=== PATIENT | female | born 1995 | race Caucasian/White ===

== ENCOUNTER 2020-04-04 17:35 | Emergency (ER) | payer OTHER, SELFPAY ==
--- NOTE | ~2020-04-04 | US_ITS ---
EXAMINATION: US OB <=14 wk fetus w TV DATE: 04/04/2020 19:12 INDICATION: Vaginal bleeding. History of miscarriage. TECHNIQUE: Real-time transabdominal and transvaginal obstetric ultrasound. FINDINGS: No prior studies for comparison. The uterus measures 11 x 7.9 x 5.9 cm. There is an intrauterine gestational sac, with pole iden tified. The crown rump length measures 0.97 cm, which correlates with a estimated gestational age of 7 weeks 0 days. No heart motions are detected. Gestational sac measurements corresponding to 8 week 5 day gestation. Right ovary is unremarkable. Left ovary is not visualized. IMPRESSION: 1. Intrauterine gestational sac containing a pole without heart motions. [place] lateral le ngth measurements correspond to 7 week 0 day gestation. Findings compatible with demise. Recomm end follow-up with serial quantitative beta-hCG levels and ultrasound as clinically indicated. Reviewed, dictated and finalized at location A. IMPRESSION: 1. Intrauterine gestational sac containing a pole without heart mot ions. [place] lateral length measurements correspond to 7 week 0 day gestation. F indings compatible with demise. Recommend follow-up with serial quantitat rich beta-hCG levels and ultrasound as clinically indicated.
[2020-04-04 17:43] VITALS: BP 146/80; PULSE 104; RESP 18; TEMP 36.9; O2SAT 99
[2020-04-04 18:02] LABS: Basophils Percent Auto 0.2 % (0.2-1.2); Eosinophils Absolute Auto 0.1 K/mm3 (0-0.3); Eosinophils Percent Auto 0.5 % (0-4.4); Hematocrit 38.5 % (37.0-47.0); Hemoglobin 12.9 g/dL (12.0-15.0); Immature Granulocyte Absolute 0.04 K/mm3 (0.00-0.031); Immature Granulocyte Percent A 0.3 % (0-0.5); Lymphocytes Absolute Auto 2.72 K/mm3 (0.9-3.2); Lymphocytes Percent Auto 22.6 % (18.3-44.2); Mean Corpuscular HGB Conc 33.5 g/dl (32-36); Mean Corpuscular Hemoglobin 29.1 pg (26-34); Mean Corpuscular Volume 86.7 fl (80-100); Mean Platelet Volume 10.1 fl (7.4-10.4); Monocytes Absolute Auto 0.8 K/mm3 (0.1-0.6); Monocytes Percent Auto 6.2 % (2.6-8.5); Neutrophils Absolute Auto 8.4 K/mm3 (1.3-6.7); Neutrophils Percent Auto 70.2 % (45.5-73.1); Platelet Count Result 341 k/mm3 (150-375); Red Blood Count 4.44 M/mm3 (4.2-5.4); Red Cell Distribution Width 13.2 % (11.5-14.5)
--- NOTE | 2020-04-04 18:12 | ED.FEMALEGU ---
HPI - Female Genitourinary General Chief complaint: Urogenital-Female Stated complaint: 10 wks preg, bleeding Time Seen by Provider: 04/04/20 18:05 Source: patient Mode of arrival: ambulatory Limitations: no limitations History of Present Illness HPI Narrative: This patient is a 24 year old female approximately 10 weeks GA who presents for evaluation of vaginal bleeding. She reports she has had intermittent vaginal bleeding during her . She reports last had bleeding 4 weeks ago and she had an ultrasound that showed an IUP. Today she saw bright red blood today when she was wiping after urinating. She has mild lower abdominal cramping. She reports she has been told her progesterone is low and she is at risk for a miscarriage. She is unsure of her blood type Related Data Home Medications Medication Instructions Recorded Confirmed multivit no.38-folate 6-dustin tablet PO 04/04/20 [Prenate AM] progesterone micronized mg 04/04/20 Allergies Allergy/AdvReac Type Severity Reaction Status Date / Time Penicillins Allergy Severe Unknown Verified 04/04/20 17:46 Review of Systems Review of Systems: All systems reviewed & are unremarkable except as noted in HPI and below Cardiovascular: Cardiovascular: Denies chest pain Respiratory: Respiratory: Denies dyspnea Gastrointestinal: Gastrointestinal: Reports abdominal pain, Denies nausea and Denies vomiting Genitourinary: Genitourinary: Reports abnormal vaginal bleeding and Denies vaginal discharge PMFSH Past Medical History Medical History (Updated 04/04/20 @ 19:40 by Cecile Norman MD) Asthma Surgical History Surgical History (Updated 04/04/20 @ 18:38 by Cecile Norman MD) No pertinent past surgical history Social History Social History (Updated 04/04/20 @ 18:38 by Cecile Norman MD) Smoking status: Never smoker Exam Narrative: Exam Narrative: GENERAL: Well-appearing, well-nourished, and in no acute distress. HEAD: Normocephalic, atraumatic EYES: PERRLA and EOMI, conjunctiva clear without discharge THROAT:Mucous membranes moist, NECK: Supple, without lymphadenopathy or mass RESPIRATORY: No respiratory distress, Airway patent, Respirations non-labored, ABDOMEN: Soft, nontender, nondistended, normal active bowel sounds. No masses. No rebound or guarding, No organomegaly. EXTREMITIES: No edema, normal strength with full range of motion. SKIN: Warm, dry, normal color without rash NEURO: Alert and oriented x3. CN 2-12 grossly intact. No focal deficits. PSYCH: Normal mood and affect. : Speculum Exam - Vagina: abnormal vaginal discharge (brown) Speculum Exam - Cervix: Cervical os closed Course Vital Signs Vital signs: Vital Signs Temperature 98.4 F 04/04/20 17:43 Pulse Rate 104 H 04/04/20 17:43 Respiratory Rate 18 04/04/20 17:43 Blood Pressure 146/80 H 04/04/20 17:43 Pulse Oximetry 99 04/04/20 17:43 Temperature 98.4 F 04/04/20 17:43 Pulse Rate 104 H 04/04/20 17:43 Respiratory Rate 18 04/04/20 17:43 Blood Pressure 146/80 H 04/04/20 17:43 Pulse Oximetry 99 04/04/20 17:43 MDM - Female Genitourinary Lab Data Attestation: I reviewed the patient's lab results. Result diagrams: 04/04/20 17:55 Labs: Lab Results 04/04/20 04/04/20 04/04/20 Range/Units 17:55 17:55 17:55 WBC 12.0 H (4.5-10.0) K/mm3 RBC 4.44 (4.2-5.4) M/mm3 Hgb 12.9 (12.0-15.0) g/dL Hct 38.5 (37.0-47.0) % MCV 86.7 (80-100) fl MCH 29.1 (26-34) pg MCHC 33.5 (32-36) g/dl RDW 13.2 (11.5-14.5) % Plt Count 341 (150-375) k/mm3 MPV 10.1 (7.4-10.4) fl Immature Gran % (Auto) 0.3 (0-0.5) % Neut % (Auto) 70.2 (45.5-73.1) % Lymph % (Auto) 22.6 (18.3-44.2) % [place] % (Auto) 6.2 (2.6-8.5) % Eos % (Auto) 0.5 (0-4.4) % Baso % (Auto) 0.2 (0.2-1.2) % Lymph # (Auto) 2.72 (0.9-3.2) K/mm3 [place] # (Auto) 0.8 H (0.1-0.6) K/m
--- NOTE | 2020-04-04 18:16 | PC.NURSE ---
Dr Norman at bedside doing ultrasound
[2020-04-04 19:51] VITALS: BP 138/90; PULSE 99; RESP 16; O2SAT 100
== END 2020-04-04 19:53 | disposition home or self-care (01) ==
PROVIDERS: Emergency Medicine Emergency Medical Services; Emergency Provider General Practice
DX: O02.1 Missed abortion (principal); Z3A.10 10 weeks gestation of pregnancy
CPT/HCPCS: 36415; 76801; 76817; 84702; 85025; 85461; 87070; 87491; 87591; 87808; 99284

== ENCOUNTER 2021-03-07 13:48 | Outpatient (CLI) | payer OTHER, SELFPAY ==
[2021-03-07 14:05] VITALS: BP 126/76; PULSE 119
[2021-03-07 14:16] VITALS: BP 122/75; PULSE 114
[2021-03-07 14:31] VITALS: BP 118/58; PULSE 110
[2021-03-07 14:55] VITALS: BP 126/76; PULSE 119
== END 2021-03-07 15:05 | disposition home or self-care (01) ==
LOC: ANHOBOP 13:54 → ANHOBPP 13:54
PROVIDERS: PCP Nurse Practitioner Family; Visit Provider Obstetrics & Gynecology
DX: O42.90 Premature rupture of membranes, unspecified as to length of time between rupture and onset of labor, unspecified weeks of gestation (principal); Z3A.00 Weeks of gestation of pregnancy not specified
CPT/HCPCS: 59025; 84112; 99199

== ENCOUNTER 2021-04-08 13:45 | Inpatient (IN) | payer OTHER, SELFPAY ==
[2021-04-08] VITALS (19 sets, daily range): BP systolic 98–152; BP diastolic 44–108; PULSE 82–113; TEMP 36.3–36.7; BMI 40.8
[2021-04-08] MEDS: ACETAMINOPHEN 500 MG TABLET 1000 MG PO ×2 (12:22→20:34)
[2021-04-08 12:36] LABS: Add Urine Microscopic? NO; Appearance Urine Clear (Clear); Basophils Percent Auto 0.2 % (0.2-1.2); Bilirubin Urine Negative (Negative); Blood Urine Negative (Negative); Color Urine Straw (Yellow); Eosinophils Percent Auto 0.3 % (0-4.4); Glucose Urine UA Negative (Negative); Hematocrit 36.2 % (37.0-47.0); Hemoglobin 11.5 g/dL (12.0-15.0); Immature Granulocyte Absolute 0.06 K/mm3 (0.00-0.031); Immature Granulocyte Percent A 0.5 % (0-0.5); Ketones Urine Negative (Negative); Leukocyte Esterase Ur Negative LEU/UL (NEGATIVE); Lymphocytes Absolute Auto 1.88 K/mm3 (0.9-3.2); Mean Corpuscular HGB Conc 31.8 g/dl (32-36); Mean Corpuscular Volume 88.3 fl (80-100); Mean Platelet Volume 11.4 fl (7.4-10.4); Monocytes Absolute Auto 0.6 K/mm3 (0.1-0.6); Monocytes Percent Auto 5.5 % (2.6-8.5); Neutrophils Absolute Auto 9.1 K/mm3 (1.3-6.7); Neutrophils Percent Auto 77.5 % (45.5-73.1); Nitrate Urine Negative (Negative); Platelet Count Result 280 k/mm3 (150-375); Protein Urine Negative (Negative); Red Cell Distribution Width 15.2 % (11.5-14.5); Specific Grav Ur 1.006 (1.001-1.035); Urobilinogen Urine Negative mg/dL (<2.0); White Blood Count 11.7 K/mm3 (4.5-10.0)
[2021-04-08 12:49] LABS: Alanine Aminotransferase 14 U/L (4-35); Albumin Level 3.6 g/dL (3.5-5.1); Alkaline Phosphatase 134 U/L (38-126); Anion Gap 11 mmol/L (8-16); Aspartate Amino Transferase 16 U/L (14-36); Bilirubin,Total 0.2 mg/dL (0.2-1.3); Blood Urea Nitrogen 9 mg/dL (7-17); Calcium 9.6 mg/dL (8.4-10.2); Carbon Dioxide 17 mmol/L (22-30); Chloride 106 mmol/L (98-107); Estimated Glomerular Filt Rate > 60; Glucose 89 mg/dL (65-110); Potassium 3.7 mmol/L (3.4-5.0); Sodium 134 mmol/L (137-145); Uric Acid 4.6 mg/dL (2.5-7.5)
--- NOTE | 2021-04-08 13:34 | PC.NURSE ---
Dr Jaime notified of PIH labs and BP's. Order for IOL.
[2021-04-08 14:03] LABS: Total Protein Urine Random 12 mg/dL; Ur Ttl Prot Creatinine Ratio 0.35 mg/mg (0-0.20)
[2021-04-08] MEDS: DINOPROSTONE 10 MG VAG INSERT VAGINAL (15:41)
--- NOTE | 2021-04-08 17:30 | WPDANESEPP ---
Anes - Eval Pre Procedure Procedure: Labor epidural Date/Time: 04/08/21 17:30 Surgeon: Yeni Preop Diagnosis: ABD pain with contractions Pre Op Diagnosis: Elevated BP Patient Data Age: 25 Gender: F Height: 1.73 m Weight: 122 kg Last Vital Signs Pulse 86 04/08/21 17:17 BP 98/59 L 04/08/21 17:17 Allergies Allergy/AdvReac Type Severity Reaction Status Date / Time Penicillins Allergy Severe Unknown Verified 04/04/20 17:46 Home Medications Medication Instructions Recorded Confirmed Type PNV cmb#95-ferrous fumarate-FA 1 tablet PO DAILY 03/16/21 03/16/21 History [] Laboratory Tests 04/08/21 04/08/21 04/08/21 12:08 12:08 12:08 WBC 11.7 K/mm3 H K/mm3 (4.5-10.0) RBC 4.10 M/mm3 L M/mm3 (4.2-5.4) Hgb 11.5 g/dL L g/dL (12.0-15.0) Hct 36.2 % L % (37.0-47.0) MCV 88.3 fl fl (80-100) MCH 28.0 pg pg (26-34) MCHC 31.8 g/dl L g/dl (32-36) RDW 15.2 % H % (11.5-14.5) Plt Count 280 k/mm3 k/mm3 (150-375) MPV 11.4 fl H fl (7.4-10.4) Immature Gran % (Auto) 0.5 % % (0-0.5) Neut % (Auto) 77.5 % H % (45.5-73.1) Lymph % (Auto) 16.0 % L % (18.3-44.2) [place] % (Auto) 5.5 % % (2.6-8.5) Eos % (Auto) 0.3 % % (0-4.4) Baso % (Auto) 0.2 % % (0.2-1.2) Lymph # (Auto) 1.88 K/mm3 K/mm3 (0.9-3.2) [place] # (Auto) 0.6 K/mm3 K/mm3 (0.1-0.6) Eos # (Auto) 0.0 K/mm3 K/mm3 (0-0.3) Baso # (Auto) 0.0 K/mm3 K/mm3 (0.0-0.1) Abs Immat Gran (auto) 0.06 K/mm3 H K/mm3 (0.00-0.031) Absolute Neuts (auto) 9.1 K/mm3 H K/mm3 (1.3-6.7) Absolute Nucleated RBC 0.0 K/mm3 K/mm3 (0.0-0.012) Nucleated RBC % 0.0 % % (0.0-0.2) Sodium Potassium Chloride Carbon Dioxide Anion Gap BUN Creatinine Estim Creat Clear Calc Estimated GFR Glucose Uric Acid Calcium Total Bilirubin AST ALT Alkaline Phosphatase Total Protein Albumin Urine Color Straw (Yellow) Urine Appearance Clear (Clear) Urine pH 7.0 (5.0-9.0) Ur Specific [place] 1.006 (1.001-1.035) Urine Protein Negative mg/dL mg/dL (Negative) Urine Glucose (UA) Negative mg/dL mg/dL (Negative) Urine Ketones Negative mg/dL mg/dL (Negative) Ur Blood (Man) Negative (Negative) Urine Nitrate Negative (Negative) Urine Bilirubin Negative (Negative) Urine Urobilinogen Negative mg/dL mg/dL (<2.0) Ur Leukocyte Esterase Negative LISA/UL LISA/UL (NEGATIVE) U Random Total Protein 12 mg/dL mg/dL Urine Creatinine 34.0 mg/dL mg/dL Protein/Creat Ratio 2 0.35 mg/mg H mg/mg (0-0.20) RPR Blood Type Antibody Screen 04/08/21 04/08/21 04/08/21 12:08 15:18 15:18 WBC RBC Hgb Hct MCV MCH MCHC RDW Plt Count MPV Immature Gran % (Auto) Neut % (Auto) Lymph % (Auto) [place] % (Auto) Eos % (Auto) Baso % (Auto) Lymph # (Auto) [place] # (Auto) Eos # (Auto) Baso # (Auto) Abs Immat Gran (auto) Absolute Neuts (auto) Absolute Nucleated RBC Nucleated RBC % Sodium 134 mmol/L L mmol/L (137-145) Potassium 3.7 mmol/L mmol/L (3.4-5.0) Chloride 106 mmol/L mmol/L (98-107) Carbon Dioxide 17 mmol/L L mmol/L (
--- NOTE | 2021-04-08 19:14 | PC.NURSE ---
Dr Laura updated on lack of pain control. No new orders. MD will be in tomorrow to evaluate for a stent.
[2021-04-08] MEDS: LACTATED RINGERS 1,000 ML 125 ML IV CONT (22:40)
[2021-04-09] VITALS (308 sets, daily range): BP systolic 96–155; BP diastolic 43–122; PULSE 39–186; RESP 16–20; TEMP 36.1–36.9; O2SAT 94–100
[2021-04-09] MEDS: OXYTOCIN 30 UNITS/NS 500 ML 30 UNITS/500 ML BAG 6 UNITS IV CONT (04:07)
[2021-04-09 05:53] LABS: Mean Platelet Volume 10.9 fl (7.4-10.4); Platelet Count Result 258 k/mm3 (150-375)
[2021-04-09 06:07] LABS: Alanine Aminotransferase 14 U/L (4-35); Albumin Level 3.4 g/dL (3.5-5.1); Alkaline Phosphatase 129 U/L (38-126); Anion Gap 7 mmol/L (8-16); Aspartate Amino Transferase 16 U/L (14-36); Bilirubin,Total 0.3 mg/dL (0.2-1.3); Blood Urea Nitrogen 10 mg/dL (7-17); Calcium 9.6 mg/dL (8.4-10.2); Carbon Dioxide 19 mmol/L (22-30); Chloride 110 mmol/L (98-107); Estimated CRCL calculation 240 ml/min; Estimated Glomerular Filt Rate > 60; Glucose 94 mg/dL (65-110); Potassium 3.4 mmol/L (3.4-5.0); Sodium 136 mmol/L (137-145); Uric Acid 4.8 mg/dL (2.5-7.5)
[2021-04-09] MEDS: LACTATED RINGERS 1,000 ML 125 ML IV CONT ×2 (06:45→10:42)
--- NOTE | 2021-04-09 20:10 | WPDHPUPDATE1 ---
History and Physical Update Update Date/Time: 04/09/21 20:10 History and Physical has been reviewed, including an updated exam of the patient. There are NO changes in the patient's condition. Risks, benefits, and alternatives have been discussed and questions answered. Patient agrees to proceed with procedure.
--- NOTE | 2021-04-09 20:11 | PM.IMHP ---
H&P: HPI History of Present Illness Date/Time: 04/09/21 20:11A 5-year-old 1 patient presents at 38 weeks for induction of labor. She was seen in the office with mildly elevated blood pressures and 3 days worth of a headache. Was sent to the labor and delivery to be evaluated blood pressures were still moderately elevated labs were all normal surveillance was normal. But her headache did persist after Tylenol. Due to the headache and mildly elevated blood pressure she was kept for induction. Cervidil was placed with amniotomy this morning with clear fluid. She has labored throughout the day push for over 2hours with no significant descent and therefore we will be proceeding with delivery. Chief Complaint: and headache Review of Systems Review of Systems: All systems reviewed & are unremarkable except as noted in HPI and below PMFSH Past Medical History Medical History Anxiety and depression Asthma Bipolar 1 disorder History of seizure Morbid obesity and not yet delivered Surgical History Surgical History No pertinent past surgical history Family History Family History Father Diabetes mellitus Social History Social History Smoking status: Never smoker Substance use: never Gender identity (if verbalized by the patient): Female Spiritual care concerns: No Meds Home Medications and Allergies Home Medications Medication Instructions Recorded Confirmed Type PNV cmb#95-ferrous fumarate-FA 1 tablet PO DAILY 03/16/21 03/16/21 History [] Allergies Allergy/AdvReac Type Severity Reaction Status Date / Time Penicillins Allergy Severe Unknown Verified 04/04/20 17:46 Vital Signs Vital Signs - 24 hr 04/08/21 20:14 04/08/21 22:43 04/08/21 22:48 Temperature 36.5 C Pulse Rate 98 86 Blood Pressure 130/70 130/79 Pulse Oximetry 04/09/21 03:00 04/09/21 04:38 04/09/21 04:45 Temperature 36.1 C L Pulse Rate 94 97 Blood Pressure 132/84 122/74 Pulse Oximetry 04/09/21 05:00 04/09/21 05:15 04/09/21 05:30 Temperature Pulse Rate 95 98 82 Blood Pressure 131/84 120/72 116/60 Pulse Oximetry 04/09/21 06:22 04/09/21 06:31 04/09/21 06:34 Temperature Pulse Rate 103 H 115 H Blood Pressure 145/93 H 152/94 H Pulse Oximetry 99 96 04/09/21 06:36 04/09/21 06:38 04/09/21 06:39 Temperature Pulse Rate 107 H 108 H 97 Blood Pressure 131/66 122/82 125/84 Pulse Oximetry 100 04/09/21 06:41 04/09/21 06:43 04/09/21 06:46 Temperature Pulse Rate 94 97 106 H Blood Pressure 140/72 134/69 123/68 Pulse Oximetry 100 98 04/09/21 06:48 04/09/21 06:51 04/09/21 06:53 Temperature Pulse Rate 100 93 97 Blood Pressure 129/71 133/72 132/74 Pulse Oximetry 99 04/09/21 06:55 04/09/21 06:56 04/09/21 06:58 Temperature Pulse Rate 92 95 Blood Pressure 132/72 134/69 Pulse Oximetry 98 04/09/21 07:00 04/09/21 07:01 04/09/21 07:03 Temperature Pulse Rate 105 H 92 Blood Pressure 137/76 133/76 Pulse Oximetry 100 04/09/21 07:05 04/09/21 07:06 04/09/21 07:08 Temperature Pulse Rate 101 H 93 Blood Pressure 133/76 111/96 H Pulse Oximetry 99 04/09/21 07:10 04/09/21 07:11 04/09/21 07:13 Temperature Pulse Rate 99 102 H Blood Pressure 140/91 H 136/69 Pulse Oximetry 99 04/09/21 07:16 04/09/21 07:18 04/09/21 07:21 Temperature Pulse Rate 109 H 104 H Blood Pressure 135/75 139/82 Pulse Oximetry 99 98 04/09/21 07:26 04/09/21 07:31 04/09/21 07:36 Temperature Pulse Rate 101 H Blood Pressure 138/81 Pulse Oximetry 99 99 97 04/09/21 07:41 04/09/21 07:46 04/09/21 07:47 Temperature Pulse Rate 115 H Blood Pressure 142/105 H P
--- NOTE | 2021-04-09 20:14 | WPDHPUPDATE1 ---
History and Physical Update Update Date/Time: 04/09/21 20:14 History and Physical has been reviewed, including an updated exam of the patient. There are NO changes in the patient's condition. Risks, benefits, and alternatives have been discussed and questions answered. Patient agrees to proceed with procedure.
--- NOTE | 2021-04-09 21:19 | PM.OBPRVD ---
OB - Delivery Note Procedure Procedure: Procedures Operation Date: 04/09/21 20:15 <No data on this case meets the specified criteria> events: Induced HTN Route of delivery: Indication for instrumentation: other (Arrest of descent) Specimen: Yes Quantitative Blood Loss (ml): 890 Anesthesia type: Epidural Disposition: floor Narrative: Patient was prepped and draped in usual manner for this procedure. Pfannenstiel incision was made and carried down to the fascia which was then extended bilaterally the length of the skin incision. Peritoneum was entered and the bladder flap was developed without difficulty. Uterus scored with minimal amniotic fluid noted and it was lightly meconium stained. Vertex was delivered the rest of baby delivered without difficulty. Cord was clamped and cut and passed off to the film developing machine operator in attendance. Uterus was manually removed uterus was exteriorized and closed using 0 Monocryl in a running interlocking manner with good approximation hemostasis noted. There was extension to the left edge which was also entered hemostatic using 0 Monocryl in a running interlocking manner. Uterus was returned to the abdomen gutters were cleared of serosanguineous fluid and clots and the uterus was again noted be hemostatic. All subfascial tissue was noted hemostatic and the fascia was then approximated using 0 Vicryl from left angle midline and the right angle to midline in a running manner. Subcutaneous tissue was approximated and jj were used to approximate the skin edges. [place] Baby Weeks of gestation at delivery: 38 Infant gender: Male Weight (pounds): 7 Weight (ounces): 6 score one minute: 3 score five minutes: 8 score ten minutes: 9
[2021-04-09] MEDS: OXYTOCIN 30 UNITS/NS 500 ML 30 UNITS/500 ML BAG 125 UNITS IV CONT (22:30)
[2021-04-09] MEDS: fentaNYL CITRATE INJ (*CRX) 100 MCG/2 ML VIAL IV PUSH (23:57)
[2021-04-10] VITALS (8 sets, daily range): BP systolic 110–139; BP diastolic 62–89; PULSE 108–128; RESP 18–20; TEMP 36.2–37; O2SAT 97–99; BMI 40.5
[2021-04-10] MEDS: DEXTROSE 5%/0.45% SOD CHL 1,000 ML 125 ML IV CONT (02:36)
[2021-04-10] MEDS: IBUPROFEN 600 MG TABLET PO ×3 (02:53→19:18)
[2021-04-10] MEDS: HYDROcodone/acetaminophen (*CRX) 5-325 MG TABLET 1 TAB PO ×4 (02:53→16:16)
[2021-04-10 04:54] LABS: Basophils Percent Auto 0.1 % (0.2-1.2); Eosinophils Percent Auto 0.1 % (0-4.4); Hemoglobin 9.4 g/dL (12.0-15.0); Immature Granulocyte Percent A 0.6 % (0-0.5); Lymphocytes Absolute Auto 1.83 K/mm3 (0.9-3.2); Lymphocytes Percent Auto 10.6 % (18.3-44.2); Mean Corpuscular HGB Conc 31.3 g/dl (32-36); Mean Corpuscular Hemoglobin 27.2 pg (26-34); Mean Platelet Volume 12.1 fl (7.4-10.4); Monocytes Absolute Auto 0.8 K/mm3 (0.1-0.6); Monocytes Percent Auto 4.5 % (2.6-8.5); Neutrophils Absolute Auto 14.5 K/mm3 (1.3-6.7); Neutrophils Percent Auto 84.1 % (45.5-73.1); Platelet Count Result 239 k/mm3 (150-375); Red Blood Count 3.45 M/mm3 (4.2-5.4); Red Cell Distribution Width 15.2 % (11.5-14.5); White Blood Count 17.2 K/mm3 (4.5-10.0)
[2021-04-10] MEDS: DOCUSATE SODIUM 100 MG CAPSULE PO ×2 (08:07→16:17)
[2021-04-10] MEDS: POLYSACCHARIDE IRON COMPLEX 150 MG CAPSULE PO ×2 (08:07→16:17)
[2021-04-10] MEDS: MULTIVIT/MIN/PREN/FOL AC/IRON TABLET 1 TAB PO (08:07)
[2021-04-10] MEDS: SIMETHICONE 80 MG TAB.CHEW PO ×2 (08:19→16:18)
--- NOTE | 2021-04-10 08:20 | PCDIET ---
Mother called out for assist with feeding. Mother reports using a nipple shield for all feedings, is sleepy and is on and off several time during feedings. Infant is able to freely thrust tongue past gum ridge and flange both lips. Skin is intact on both nipples, no redness and bruising noted. Both nipples are flat and firm. Reviewed feeding cues, frequencies, duration of feedings, feeding elimination flow sheet, and signs of adequate intake. Demonstrated stimulation techniques to wake for feeding. Assisted with to breast. Reviewed positioning/alignment in cross cradle, holding breast in ?U? hold and guided asymmetrical latch on. Discussed rational for each. Infant able to draw nipple in deeply for correct latch. Discussed nipple shield precautions and possible complications. Instructions given on application and cleaning of shield. Patient able to return demonstration on proper application of shield. Discussed the need to initiate pumping if infant continues to nurse with the shield. Patient verbalizes understanding. With shield in place, was able to latch. made weak efforts to suckle no swallowing noted. Mother states was slight more eagerly the last few feedings. Reviewed signs of a correct latch, effective nursing and suck swallow ratio. Reviewed the difference of effective vs ineffective nursing. Advised mother that infant is not swallowing or transferring colostrum this feeding. Suggested mother stimulate while feeding to increase stimulation, increase intake and to assist with maintaining deep latch. made no effort to suckle. Feeding options discussed. Mother would like to initiate supplementation and pumping. Assisted FOB with bottle feeding.
[2021-04-10 10:00] LABS: Rapid Plasma Reagin Non-Reactive (NonReactive)
--- NOTE | 2021-04-10 11:30 | PC.NURSE ---
Mother called out for assist with feeding. Demonstrated stimulation techniques to wake . Infant made little effort to wake no feeding cues noted. With shield in place, infant was able to latch. made weak efforts to suckle no swallowing noted. Mother states was slight more eagerly the last few feedings. Reviewed signs of a correct latch, effective nursing and suck swallow ratio. Reviewed the difference of effective vs ineffective nursing. Advised mother that is not swallowing or transferring colostrum this feeding. Suggested mother stimulate while feeding to increase stimulation, increase intake and to assist with maintaining deep latch. Infant made no effort to suckle. Assisted FOB with bottle feeding.
--- NOTE | 2021-04-10 12:00 | PC.NURSE ---
Breast pump provided due to ineffective feeding/nipple shield use. Instructions given on breast pump care and usage, pumping schedule, nipple care, and collection and storage of breast milk. Encouraged [id number], breast massage and manual expression to stimulate supply. Assessed patient for correct flange size, placement and draw. Patient verbalizes and demonstrates understanding of instructions.
--- NOTE | 2021-04-10 12:25 | PM.OBPNVD ---
OB - PN: Subj Subjective Date/time seen: 04/10/21 12:25 Pain well controlled/no sig bleed. Catheter still in place. Diet tolerated. OB - PN: Obj Data Labs CBC & Chem 7: 04/10/21 03:32 04/09/21 05:38 Labs: Laboratory Results - last 24 hr 04/08/21 04/10/21 15:18 03:32 WBC 17.2 H RBC 3.45 L Hgb 9.4 L Hct 30.0 L MCV 87.0 MCH 27.2 MCHC 31.3 L RDW 15.2 H Plt Count 239 MPV 12.1 H Immature Gran % (Auto) 0.6 H Neut % (Auto) 84.1 H Lymph % (Auto) 10.6 L [place] % (Auto) 4.5 Eos % (Auto) 0.1 Baso % (Auto) 0.1 L Lymph # (Auto) 1.83 [place] # (Auto) 0.8 H Eos # (Auto) 0.0 Baso # (Auto) 0.0 Abs Immat Gran (auto) 0.10 H Absolute Neuts (auto) 14.5 H Absolute Nucleated RBC 0.0 Nucleated RBC % 0.0 RPR Non-reactive OB - PN A/P Plan day: 1 Plan: routine care Comments: Increase ambulation as tolerated. Likely home Thursday. Time Spent With Patient Time: Total time spent is greater than 50% in coordination of care (as documented) at patient's floor/unit and/or counseling patient: Time with patient: less than 15 minutes Exam Narrative: abd soft fundus firm/sl tender inc covered
--- NOTE | 2021-04-10 12:30 | WPDANLDPN2 ---
Anes-Prog Note L&D Date/Time: 04/10/21 12:30 Comfortable throughout: labor and section Neuraxial method: epidural Epidural/Spinal procedure site: clean & non-tender Neuro status: Neuro function grossly intact. Cardiovascular status: normal Respiratory status: normal Airway patency: baseline Mental status: baseline Post-Op hydration status: normal Vital Signs: Last Vital Signs Temp 36.6 C 04/10/21 08:00 Pulse 111 H 04/10/21 08:00 Resp 18 04/10/21 08:00 BP 110/63 04/10/21 08:00 Pulse Ox 97 04/10/21 08:00 Pain score (VAS): 08/19 I/O: Intake & Output 04/09/21 04/10/21 04/10/21 23:59 07:59 15:59 Intake Total 400 Output Total 250 350 Balance -250 50 Post-procedural complaints: none Patient feedback: Patient satisfied with anesthetic care.
--- NOTE | 2021-04-10 12:31 | WPDANLDNPN2 ---
Anes-Prog Note L&D-Neuraxial Date/Time: 04/10/21 12:31 Neuraxial medications: epidural PF morphine Opiod-related complaints: none Patient feedback: Patient satisfied with post-operative pain management.
[2021-04-10] MEDS: HYDROcodone/acetaminophen (*CRX) 10-325 MG TABLET 1 TAB PO ×2 (19:19→23:36)
[2021-04-11] MEDS: HYDROcodone/acetaminophen (*CRX) 5-325 MG TABLET 1 TAB PO ×3 (04:30→15:57)
[2021-04-11] MEDS: IBUPROFEN 600 MG TABLET PO ×3 (04:31→19:33)
[2021-04-11 04:40] VITALS: BP 135/87; PULSE 120; RESP 18; TEMP 37.4; O2SAT 96
[2021-04-11 07:30] VITALS: BP 129/83; PULSE 112; RESP 18; TEMP 36.2; O2SAT 99
[2021-04-11 08:00] VITALS: PULSE 119; RESP 18; O2SAT 100
[2021-04-11] MEDS: POLYSACCHARIDE IRON COMPLEX 150 MG CAPSULE PO ×2 (09:06→15:58)
[2021-04-11] MEDS: MULTIVIT/MIN/PREN/FOL AC/IRON TABLET 1 TAB PO (09:06)
[2021-04-11] MEDS: DOCUSATE SODIUM 100 MG CAPSULE PO ×2 (09:06→15:56)
--- NOTE | 2021-04-11 13:15 | PC.NURSE ---
Consult with pt., mother states infant continues with sleepiness and minimal suckling at breast. Mother continues to pump 1-2 mls every 3 hours and is discouraged with volume. Mother denies difficulties or discomfort with pumping. Assured mother this is normal at this time and milk should transition in within a few days with regular stimulation. Mother reports is ready to feed. Reviewed feeding cues, frequencies, duration of feedings, feeding elimination flow sheet, and signs of adequate intake. Demonstrated stimulation techniques to wake for feeding. Assisted with infant to breast. Reviewed positioning/alignment in football, holding breast in ?C? hold and guided asymmetrical latch on. Discussed rational for each. able to latch correctly with nipple shield. Reviewed signs of a correct latch. made no effort to nurse. Infant stimulated and small amount of formula to shield and mouth to entice to suckle. remained with a latch. Nipple care reviewed of lanolin after feedings, warm compresses as needed. Mother will continue with current feeding plan to put to breat each feeding, supplement and pump offering any EBM from previous feeding as part of supplement.
--- NOTE | 2021-04-11 14:05 | PM.OBPNVD ---
OB - PN: Subj Subjective Date/time seen: 04/11/21 14:05 25yo s/p section on 04/09. Doing well today. Up and out of bed, ambulating. Did feel a little dizzy at first but is now feeling better. Breast feeding. Tolerating diet. Some soreness, but pain is controlled. Denies chest pain, SOB. OB - PN: Obj Data Labs CBC & Chem 7: 04/10/21 03:32 04/09/21 05:38 OB - PN A/P Assessment and Plan (1) Delivery by section: Status: Acute Assessment and Plan: Routine postop and care Pain management Ambulate DC home tomorrow (2) Gestational hypertension: Code(s): O13.9 - Gestational [-induced] hypertension without significant proteinuria, unspecified trimester Status: Acute Time Spent With Patient Time: Total time spent is greater than 50% in coordination of care (as documented) at patient's floor/unit and/or counseling patient: Exam Const: General: cooperative, healthy appearing, comfortable, no acute distress, well developed, alert, awake and Physically active Resp: Effort & Inspection: normal respiratory effort, able to speak in complete sentences, no audible wheezes and no cough Cardio: Rate: tachycardic Rhythm: regular rhythm GI: Inspection: normal to inspection GI Palp: No abdominal tenderness and Yes Soft to palpation Other: Incision C/D/I. Araceli in place Neuro: General: oriented to person, oriented to place and oriented to time Psych: Appearance: grossly normal Mental Status: mental status grossly normal Speech and movement: Normal speech and movement present Affect: normal affect Attitude: cooperative Thought process: Normal thought process present Thought content: Yes Normal thought content present Insight: Good insight present (Psych) Judgement: Good judgement present (Psych)
[2021-04-11 16:22] VITALS: BMI 39.6
[2021-04-11 16:25] VITALS: BP 141/90; PULSE 119; RESP 18; TEMP 36.3; O2SAT 100
[2021-04-11 19:15] VITALS: BP 135/87; PULSE 120; RESP 18; TEMP 37; O2SAT 99
[2021-04-11] MEDS: HYDROcodone/acetaminophen (*CRX) 10-325 MG TABLET 1 TAB PO (19:34)
[2021-04-11 23:25] VITALS: BP 138/90; PULSE 120; RESP 16; TEMP 36.7; O2SAT 97
--- NOTE | 2021-04-11 23:36 | ECG_ITS ---
Measurements Intervals [place] Rate: 122 P: DC: 0 QRS: 23 QRSD: 88 T: 45 QT: 385 QTc: 550 Interpretive Statements SINUS TACHYCARDIA INCOMPLETE RIGHT BUNDLE BRANCH BLOCK NONSPECIFIC ST & T-WAVE ABNORMALITY- ANTERIOR LEADS ABNORMAL ECG Electronically Signed On 04-12-2021 5:48:55 CDT by Robert Quiros D.O.
--- NOTE | 2021-04-11 23:38 | PC.NURSE ---
Dr. Richard notified that pt called out stating her feels as if her heart is racing . Vitals 98.0, 120, 16, 138/90. Order for stat EKG and call results.
--- NOTE | 2021-04-12 00:33 | PC.NURSE ---
Contacted medical office receptionist assistant probation worker exchange at [phone] in which a callback was received by Dr. Tucker. Dr. Tucker updated regarding pt's c/o heart racing and her current vital signs, EKG interpretation that's printed at top of printout and a brief history of pt. No acute distress noted and HR baseline has been tachy for last several days. Pt denies any chest pain or SOB. No intervention at this time, however, face to face consultation/evaluation scheduled for 04/12/21. Pt is in no distress at this time. Will continue to monitor.
[2021-04-12] MEDS: IBUPROFEN 600 MG TABLET PO ×4 (01:29→21:51)
[2021-04-12] MEDS: HYDROcodone/acetaminophen (*CRX) 5-325 MG TABLET 1 TAB PO ×4 (01:30→16:21)
[2021-04-12 05:15] VITALS: BP 102/67; PULSE 102; RESP 16; TEMP 36.9; O2SAT 97
[2021-04-12 06:40] VITALS: BP 138/91; PULSE 110; RESP 18; TEMP 36.7
[2021-04-12] MEDS: DOCUSATE SODIUM 100 MG CAPSULE PO ×2 (10:14→16:21)
[2021-04-12] MEDS: MULTIVIT/MIN/PREN/FOL AC/IRON TABLET 1 TAB PO (10:14)
[2021-04-12] MEDS: POLYSACCHARIDE IRON COMPLEX 150 MG CAPSULE PO ×2 (10:14→16:21)
--- NOTE | 2021-04-12 10:31 | PM.OBPNVD ---
OB - PN: Subj Subjective Date/time seen: 04/12/21 10:31 25yo s/p section on 04/09. Developed palpitations overnight, EKG was done. Cardiology consult pending. This morning she states she is feeling better and is not feeling palpitations. Denies chest pain or shortness of breath. Having soreness but pain medications are helping. Ambulating. Tolerating diet. Voiding freely. OB - PN: Obj Data Labs CBC & Chem 7: 04/10/21 03:32 04/09/21 05:38 OB - PN A/P Assessment and Plan (1) Delivery by section: Status: Acute Assessment and Plan: Routine postop and care Pain management Ambulate DC home tomorrow (2) Gestational hypertension: Code(s): O13.9 - Gestational [-induced] hypertension without significant proteinuria, unspecified trimester Status: Acute (3) Arrhythmia: Code(s): I49.9 - Cardiac arrhythmia, unspecified Status: Acute Assessment and Plan: CArdiology consult pending, appreciate recommendations Time Spent With Patient Time: Total time spent is greater than 50% in coordination of care (as documented) at patient's floor/unit and/or counseling patient: Exam Const: General: cooperative, healthy appearing, comfortable, no acute distress, well developed, alert, awake and Physically active Orientation/consciousness: oriented to person, oriented to place and oriented to time Resp: Effort & Inspection: normal respiratory effort, able to speak in complete sentences, no audible wheezes and no cough Auscultation: clear to auscultation bilaterally Cardio: Rate: regular rate and tachycardic GI: Inspection: normal to inspection Auscultation: normal bowel sounds Other: Incision C/D/I. [place] in place Neuro: General: oriented to person, oriented to place and oriented to time Psych: Appearance: grossly normal Mental Status: mental status grossly normal Speech and movement: Normal speech and movement present Affect: normal affect Attitude: cooperative Thought process: Normal thought process present Insight: Good insight present (Psych) Judgement: Good judgement present (Psych)
--- NOTE | 2021-04-12 10:35 | PC.NURSE ---
Mom states at this point she prefers to just pump for baby and not put infant to breast. Instructions reviewed on breast pump care and usage, pumping schedule, nipple care, and collection and storage of breast milk. Encouraged [id number], breast massage and manual expression to stimulate supply. Mother encouraged to use phone number to call with any questions once she is home or to set up an outpatient appt if she desires. Patient verbalizes and demonstrates understanding of instructions. Mom states she has a nipple shield. Instructions reviewed on application and cleaning of shield. Discussed nipple shield precautions and possible complications. Patient verbalizes understanding.
[2021-04-12 11:40] VITALS: BP 144/104; PULSE 114; RESP 18; TEMP 36; O2SAT 99
--- NOTE | 2021-04-12 13:37 | PC.NURSE ---
Called [facility] Cardiology office at [phone] to see if MD was going to see pt as a f/u to her EKG last noc. Office staff said she will send message to Dr. Damon or Dr. Melvin regarding visiting pt. today.
--- NOTE | 2021-04-12 15:13 | PM.CNCAR ---
Assessment and Plan Additional Plan Intermittent tachy palpitations in this otherwise healthy but obese 25-year-old lady. She has had a couple of these episodes in the past and had 1 last evening in the room after delivering her son couple of days ago by Caesarean section. The episode was self-limited and not associated with any other cardiac symptomatology. By far the most likely situation is that she has an intermittent paroxysmal SVT of some sort. This has yet to be documented so we really do not have that diagnosis established. There is no other cardiac have a history and no abnormalities noted on her cardiac physical exam. I did speak to the patient about the strategy of documenting these sorts of arrhythmias so they can be diagnosis specifically and then if necessary treated. This is very difficult if these arrhythmias are happening this infrequently. She does have a newer generation Apple watch which is capable of recording telemetry strips in this type of situation. I do not have any other specific recommendations. If she has an episode like this she should try to recorded on her Apple watch and present that to her physician for further assessment/evaluation. At this point she does not require follow-up with me in my office as there is no specific cardiac diagnosis. Elieser Damon MD [facility] History of Present Illness History of Present Illness Consult date/time: 04/12/21 15:13 Reason For Visit: Elevated BP Narrative: This is a 25-year-old woman I am seeing at the request of the electrical installation supervisor because of palpitations. The patient was admitted to the hospital a few days ago for a section. She does not have any known or documented cardiac problems in the past. She had her Caesarean section uneventfully and is still in the hospital because of jaundice in the baby and otherwise she is doing well and does not have any cardiovascular concerns. She states that last evening she had an episode of tachycardia and palpitations while she was relaxing in the hospital bed and was not stressed or upset by anything. She has not been in any pain she simply felt abruptly the onset of her heart beating rapidly and forcefully. She did not feel irregular heart beating she did not feel lightheaded or presyncopal she did not have any chest pain or dyspnea along with any of this he states this went on for something like 5 or 10 minutes and then subsided on its own. She told the electrical installation supervisor about this this morning and for that reason we have been consulted to see her. She states she can remember having at least 1 maybe 2 episodes of this in the past. Several years ago she had an episode that went on for a longer period of time and she actually went to the emergency room at [facility] for evaluation. By the time she got there she was in normal sinus rhythm and had a negative emergency room evaluation. She was not followed up with a business solutions consultant for any reason after that. She has never had a syncopal episode or a near syncopal episode. She denies any history of hypertension diabetes or dyslipidemia. She is morbidly obese. Her new son is her 1st child. Review of Systems Constitutional: Constitutional: Reports no additional constitutional complaints Eyes: Eyes: Reports no additional eye complaints ENT: Reports system reviewed and no additional complaints, except as documented Cardiovascular: Cardiovascular: Reports palpitations Respiratory: Respiratory: Reports no additional respiratory complaints Gastrointestinal: Gastrointestinal: Reports no additional gastrointestinal complaints Musculoskeletal: Musculoskeletal: Reports no additional musculoskeletal complaints Integumentary/Breasts: Skin/Breast: Reports system reviewed and no additional complaints, except as docu Neurologic: Reports system reviewed and no additional complaints, except as documented Psychiatric: Psychiatric: Reports no additional psychiatric complaints Endocrine: E
[2021-04-12 16:30] VITALS: BP 140/96; PULSE 115; RESP 20; TEMP 36.6
[2021-04-12 19:30] VITALS: BP 129/88; PULSE 113; RESP 16; TEMP 36.7
[2021-04-13] VITALS: BP 136/90; PULSE 110
[2021-04-13] MEDS: HYDROcodone/acetaminophen (*CRX) 10-325 MG TABLET 1 TAB PO (00:09)
[2021-04-13 04:42] VITALS: BP 140/85; PULSE 108
[2021-04-13] MEDS: IBUPROFEN 600 MG TABLET PO ×2 (04:42→10:27)
[2021-04-13] MEDS: HYDROcodone/acetaminophen (*CRX) 5-325 MG TABLET 1 TAB PO ×2 (04:42→10:26)
[2021-04-13 08:30] VITALS: BP 138/84; PULSE 106; RESP 20; TEMP 36.1
[2021-04-13] MEDS: POLYSACCHARIDE IRON COMPLEX 150 MG CAPSULE PO (10:26)
[2021-04-13] MEDS: DOCUSATE SODIUM 100 MG CAPSULE PO (10:26)
[2021-04-13] MEDS: MULTIVIT/MIN/PREN/FOL AC/IRON TABLET 1 TAB PO (10:28)
--- NOTE | 2021-04-13 12:05 | PM.DS ---
DS: Admitting Diagnosis Admitting Diagnosis Gestational hypertension DS: Discharge Diagnosis Discharge Diagnosis (1) Delivery by section: Status: Acute Assessment and Plan: Routine postop and care Pain management Ambulate DC home (2) Gestational hypertension: Code(s): O13.9 - Gestational [-induced] hypertension without significant proteinuria, unspecified trimester Status: Acute (3) Arrhythmia: Code(s): I49.9 - Cardiac arrhythmia, unspecified Status: Acute Assessment and Plan: S/p Cardiology consult DS: Summary Time Spent with Patient Time attestation: Total time spent providing and/or coordinating discharge services: Exam Const: General: cooperative, healthy appearing, comfortable, no acute distress, well developed, alert, awake and Physically active Orientation/consciousness: oriented to person, oriented to place and oriented to time Resp: Effort & Inspection: normal respiratory effort, able to speak in complete sentences, no audible wheezes and no cough Auscultation: clear to auscultation bilaterally Cardio: Rate: regular rate and tachycardic Rhythm: regular rhythm GI: Inspection: normal to inspection Auscultation: normal bowel sounds Other: Incision C/D/I. [place] in place Neuro: General: oriented to person, oriented to place and oriented to time Psych: Appearance: grossly normal Mental Status: mental status grossly normal Speech and movement: Normal speech and movement present Affect: normal affect Attitude: cooperative Thought process: Normal thought process present Insight: Good insight present (Psych) Judgement: Good judgement present (Psych) Discharge Plan Discharge Attending physician on discharge: Dex Jaime Consulting providers: Levi Tucker Discharging Clinician: Phil Richard Patient Disposition: Home, Self-Care Activity: may shower, no straining and pelvic rest Diet: regular Patient Instructions: Antibiotic Form Stand Alone Forms: General Discharge Information Follow-up/Referrals: Dex Jaime MD [Physician] - Call for Appointment Discharge Medications: New hydrocodone-acetaminophen 5-325 mg Tablet 1 tablet PO Q4-6H PRN (Reason: Moderate Pain (4-6)) Qty: 14 RF: 0 docusate sodium 100 mg Capsule 100 mg PO BID Qty: 60 RF: 0 polysaccharide iron complex 150 mg iron Capsule 150 mg PO BIDWM Qty: 60 RF: 0 ibuprofen 600 mg Tablet 600 mg PO Q6H PRN (Reason: Cramping) Qty: 90 RF: 0 Continued PNV [id number] fumarate-FA [] 28 mg iron- 800 mcg Tablet 1 tablet PO DAILY RF: 0 Date of admission: 04/08/21 13:45 Primary Care Provider: Kala,Kaylie Kessler Admitting Provider: Dex Jaime Attending physician on admission: Dex Jaime Condition: Stable
--- NOTE | 2021-04-13 12:10 | PM.OBDSVD ---
DS: Admitting Diagnosis Admitting Diagnosis Gestational hypertension DS: Discharge Diagnosis Discharge Diagnosis (1) Delivery by section: Status: Acute Assessment and Plan: Routine postop and care Pain management Ambulate DC home (2) Gestational hypertension: Code(s): O13.9 - Gestational [-induced] hypertension without significant proteinuria, unspecified trimester Status: Acute (3) Arrhythmia: Code(s): I49.9 - Cardiac arrhythmia, unspecified Status: Acute Assessment and Plan: S/p Cardiology consult OB - DS: Summary OB Procedures : None OB Procedures Intrapartum: low cervical, transverse OB Procedures: : None Peripartum Data Procedures: Procedures Operation Date: 04/09/21 20:15 Actual Procedure Side Surgeon p Section Not Applicable Dex Jaime MD Time Spent with Patient Time attestation: Total time spent providing and/or coordinating discharge services: Exam Const: General: cooperative, healthy appearing, comfortable, no acute distress, alert and awake Eyes: General: appearance normal, both eyes and all related structures Resp: Effort & Inspection: normal respiratory effort, able to speak in complete sentences, normal respiratory pattern, no audible wheezes and no cough Cardio: Rate: tachycardic GI: Inspection: normal to inspection GI Palp: No abdominal tenderness, Yes Soft to palpation, No Firmness to palpation present (GI), No Tenderness to palpation present (GI), No Guarding due to palpation present (GI) and No Rigid due to palpation Other: Incision C/D/I, jj in place Skin: General skin exam: normal color Neuro: General: oriented to person, oriented to place and oriented to time Psych: Appearance: grossly normal Mental Status: mental status grossly normal Speech and movement: Normal speech and movement present Affect: normal affect Attitude: cooperative Thought process: Normal thought process present Thought content: Yes Normal thought content present Insight: Good insight present (Psych) Judgement: Good judgement present (Psych) Discharge Plan Discharge Attending physician on discharge: Dex Jaime Consulting providers: Levi Tucker Discharging Clinician: Phil Richard Patient Disposition: Home, Self-Care Activity: may shower, no straining and pelvic rest Diet: regular Discharge Instructions: Education: Mom and Baby Guide Given to: Mother Follow-Up: Call your delivering provider's office for an appointment to be seen in: Call for appointment Mom and baby should come to the [facility] for the follow-up appointment. Appointment Date/Time: April 15, 2021 at 3:30 pm What to expect at your follow-up visit: Physical Assessment Call [phone] if you are unable to keep your appointment time. BREAST CARE: * Wear a snug supportive bra. * For engorgement discomfort: Breast Feeding: * Apply warm moist washcloths * Express milk as needed to relieve engorgement * Wear loose clothing * For sore nipples: * Identify correct latch-on * Apply warm moist washcloths before and after nursing * Air dry nipples after nursing * May apply Lansinoh cream to nipples ABDOMINAL INCISION: * Allow incision to air dry * Do NOT use lotions for powders on your incision * When showering, allow soap and water to run over the incision, but do not wash incision PERINEAL CARE: * Until bleeding stops, use your alo bottle after urinating * Change your pad frequently throughout the day * No tub baths until seen by your physician - You may shower ACTIVITY: * Rest as much as possible. * Do not exercise or lift anything heavier than your baby (such as laundry or other children.) * Avoid stairs or driving as much as possible. * Do not put anything into the vagina. No douching, tampons, o
[2021-04-15 15:47] VITALS: BP 139/90; PULSE 111; RESP 20; TEMP 37.4; O2SAT 100
== END 2021-04-13 12:50 | disposition home or self-care (01) | DRG 786 ==
LOC: ANHOBOP 14:48 → ANHLDR 04-09 19:56 → ANHOB2 04-11 14:21 → ANHLDR 04-17 07:03 → ANHOB2 04-17 07:03 → ANHOBPP 04-17 07:03
PROVIDERS: Admitting Provider Obstetrics & Gynecology; PCP Nurse Practitioner Family; Visit Provider Obstetrics & Gynecology
PROC: 10D00Z1 Extraction of Products of Conception, Low, Open Approach (ICD-10-PCS; CPT 59514; principal; 2021-04-09 20:15)
DX: O62.1 Secondary uterine inertia (principal); O99.42 Diseases of the circulatory system complicating childbirth; O13.4 Gestational [pregnancy-induced] hypertension without significant proteinuria, complicating childbirth; O99.214 Obesity complicating childbirth; E66.01 Morbid (severe) obesity due to excess calories; O76 Abnormality in fetal heart rate and rhythm complicating labor and delivery; Z3A.38 38 weeks gestation of pregnancy; Z37.0 Single live birth; I49.9 Cardiac arrhythmia, unspecified
CPT/HCPCS: 36415; 80053; 81003; 82570; 84156; 84550; 85025; 85049; 86592; 86850; 86900; 86901; 87086; 87088; 93005; A9270; J1885; J2250; J2274; J2405; J2590; J2795; J3010; J7120